=== PATIENT | female | born 1995 | race African-American/Black ===

== ENCOUNTER 2021-01-20 19:32 | Emergency (ER) | payer MEDICAID, OTHER ==
[~2021-01-20] VITALS: Ht 167.6 cm; Wt 114.0 kg
[2021-01-20 21:42] VITALS: BP 145/87
[2021-01-20] MEDS ORDERED: LIDOCAINE HCL/PF 1% 10 MG/ML 5ML VIAL IJ ONE (22:30)
[2021-01-20] MEDS ORDERED: BACITRACIN ZINC OINT UDPKT TOP ONE (22:30)
[2021-01-20] MEDS ORDERED: ACETAMINOPHEN WITH CODEINE 300/30MG TABLET PO ONE (22:30)
[2021-01-21] MEDS ORDERED: CIPR750T4 MT (00:31)
[2021-01-21] MEDS ORDERED: IBUP-2029 MT (00:31)
[2021-01-21] MEDS ORDERED: BO1 TP (00:32)
== END 2021-01-21 01:41 | disposition home or self-care (01) ==
LOC: ER 19:32
DX: S00.452A Superficial foreign body of left ear, initial encounter (principal); J39.8 Other specified diseases of upper respiratory tract; J45.909 Unspecified asthma, uncomplicated; F12.10 Cannabis abuse, uncomplicated; F17.210 Nicotine dependence, cigarettes, uncomplicated; W45.8XXA Other foreign body or object entering through skin, initial encounter; Y93.89 Activity, other specified; Y92.89 Other specified places as the place of occurrence of the external cause
CPT/HCPCS: 69200; 81025; 99284; J3490